=== PATIENT | male | born 1970 | race African-American/Black ===

== ENCOUNTER 2022-12-12 20:10 | Emergency (ER) | payer SELFPAY ==
[2022-12-12] VITALS (8 sets, daily range): BP systolic 125–152; BP diastolic 75–88; PULSE 94–103; RESP 12–25; TEMP 36.8; O2SAT 98–100
--- NOTE | ~2022-12-12 | XR_ITS ---
Portable chest x-ray Comparison: None Clinical History: Chest pain Findings: Lungs are clear, without focal consolidation or pleural effusion. Cardiomediastinal silho uette is unremarkable. Bones and soft tissues are unremarkable. Impression: Normal chest. Reviewed, dictated and finalized at location M. Impression: Normal chest.
--- NOTE | 2022-12-12 21:35 | ECG_ITS ---
Measurements Intervals [place] Rate: 95 P: 24 [place]: 120 QRS: 53 QRSD: 90 T: 73 QT: 335 QTc: 423 Interpretive Statements SINUS RHYTHM VOLTAGE CRITERIA FOR LVH ST ELEVATION IN ANTERIOR LEADS- PROBABLY EARLY REPOLARIZATION ABNORMALITY BORDERLINE ECG NO PREVIOUS ECG AVAILABLE FOR COMPARISON Electronically Signed On 12-13-2022 6:12:27 CDT by Greg Acosta D.O.
[2022-12-12 21:48] LABS: Basophils Absolute Auto 0.1 K/mm3 (0.0-0.1); Basophils Percent Auto 0.8 % (0.2-1.2); Eosinophils Absolute Auto 0.3 K/mm3 (0-0.3); Eosinophils Percent Auto 4.7 % (0-4.4); Hematocrit 40.1 % (42.0-52.0); Hemoglobin 13.9 g/dL (14.0-18.0); Immature Granulocyte Absolute 0.02 K/mm3 (0.00-0.031); Immature Granulocyte Percent A 0.3 % (0-0.5); Lymphocytes Absolute Auto 1.17 K/mm3 (0.9-3.2); Lymphocytes Percent Auto 19.7 % (18.3-44.2); Mean Corpuscular HGB Conc 34.7 g/dl (32-36); Mean Corpuscular Hemoglobin 32.2 pg (26-34); Mean Corpuscular Volume 92.8 fl (80-100); Mean Platelet Volume 10.3 fl (7.4-10.4); Monocytes Absolute Auto 0.5 K/mm3 (0.1-0.6); Monocytes Percent Auto 7.7 % (2.6-8.5); Neutrophils Percent Auto 66.8 % (45.5-73.1); Platelet Count Result 205 k/mm3 (150-375); Red Blood Count 4.32 M/mm3 (4.6-6.20); Red Cell Distribution Width 11.4 % (11.5-14.5); White Blood Count 5.9 K/mm3 (4.5-10.0)
[2022-12-12 21:59] LABS: Alanine Aminotransferase 31 U/L (6-50); Albumin Level 4.1 g/dL (3.5-5.1); Alkaline Phosphatase 124 U/L (38-126); Anion Gap 6 mmol/L (8-16); Aspartate Amino Transferase 26 U/L (17-59); Blood Urea Nitrogen 16 mg/dL (9-20); Calcium 8.6 mg/dL (8.4-10.2); Carbon Dioxide 30 mmol/L (22-30); Chloride 95 mmol/L (98-107); Estimated CRCL calculation 94 ml/min; Estimated Glomerular Filt Rate > 60; Glucose 574 mg/dL (65-110); Potassium 4.1 mmol/L (3.4-5.0); Sodium 131 mmol/L (137-145)
--- NOTE | 2022-12-12 22:00 | ECG_ITS ---
Measurements Intervals [place] Rate: 96 P: 41 TN: 145 QRS: 55 QRSD: 85 T: 76 QT: 329 QTc: 416 Interpretive Statements SINUS RHYTHM VOLTAGE CRITERIA FOR LVH ST ELEVATION IN ANTEROLAT/INF LEADS- PROBABLY EARLY REPOLARIZATION ABNORMALITY BORDERLINE ECG COMPARED TO ECG 12/12/2022 21:45:23 NO SIGNIFICANT CHANGES Electronically Signed On 12-13-2022 7:55:50 CDT by Greg Acosta D.O.
[2022-12-12] MEDS: SODIUM CHLORIDE 0.9% IV 3,000 ML 999 ML IV CONT (23:43)
[2022-12-13 00:46] VITALS: BP 129/73; PULSE 81; RESP 10
--- NOTE | 2022-12-13 03:19 | ED.GENADULT ---
HPI - General Adult General Chief complaint: Syncope Stated complaint: syncope, out of DM meds Time Seen by Provider: 12/12/22 21:35 History of Present Illness HPI narrative: This is a 52-year-old male presenting ED after syncopal event. Patient says he woke up this morning and went to the restroom and urinated. After urinated he had a syncopal event and fell to the floor. He woke up and then went to work. He was at work for most the day but felt fatigued. He then came to emergency department for evaluation. The patient has been out of his diabetes meds for approximately 2 months. He has had increased urinary frequency. Patient also has pain over the left side of his ribcage that is worse with palpation. He does not note any trauma. It has been going on for 2-3 weeks. patient denies chest pain, difficulty breathing, fever, chills, diarrhea or any other complaints. Related Data Allergies Allergy/AdvReac Type Severity Reaction Status Date / Time No Known Allergies Allergy Verified 12/13/22 03:28 [facility] Past Medical History Medical History Diabetes Exam Narrative: APPEARANCE: No apparent distress. Head: No evidence of trauma, EYES: EOMI, NOSE: Atraumatic, no midline cervical tenderness NECK: Trachea midline RESPIRATORY: No increased rate of breathing, clear to auscultation CARDIOVASCULAR: RRR, no peripheral edema ABDOMINAL: Non-distended MUSCULOSKELETAl: No obvious deformities, tenderness to palpation over the left lower ribcage. No crepitus no bruising. NEURO: Alert. Cranial nerves 2-12 grossly intact. Sensation light touch, motor function cerebellar function intact for 4 extremities. Gait exam was normal. SKIN:: Warm, dry. Normal color PSYCHIATRIC: Normal affect Course Vital Signs Vital signs: Vital Signs Temperature 98.3 F 12/12/22 20:41 Pulse Rate 103 H 12/12/22 20:41 Respiratory Rate 18 12/12/22 20:41 Blood Pressure 138/88 12/12/22 20:41 Pulse Oximetry 100 12/12/22 20:41 Oxygen Delivery Room Air 12/12/22 20:41 Temperature 98.3 F 12/12/22 20:41 Pulse Rate 95 12/12/22 22:16 Respiratory Rate 12 12/12/22 22:16 Blood Pressure 125/75 12/12/22 22:16 Pulse Oximetry 99 12/12/22 22:16 Oxygen Delivery Room Air 12/12/22 20:41 Medical Decision Making MDM Narrative Medical decision making narrative: -Presentation: this is a 52-year-old diabetic who has been off of his medications for several months. He now episode of micturition syncope and then has felt fatigued throughout the day. Glucose was elevated at 500. -DDX includes but is not limited to: dehydration due to uncontrolled diabetes, DKA /HHS, micturition syncope -Co-morbidities complicating care: diabetes, medication noncompliance -Social determinants of health: patient works as a city driver. Lives with his . -External Chart Review: None -Hx from independent Sources: none -Discussion of Management/Consultants: none -Independent interpretation of studies: His CBC will is normal. Metabolic panel showed hyponatremia and hypochloremia other consistent with dehydration. Glucose was 574 but there was no acidosis or anion gap. Independent EKG interpretation: Rhythm [sinus], Rate [95], [place] -[normal], [place] -[normal], QRS [narrow], QTC [normal], T waves -[negative for concerning inversions], ST Segments - [Negative for concerning elevations] Final interpretations: [Normal Sinus Rhythm] chest x-ray showed no acute cardiopulmonary process per UA showed 51-100 white blood cells and +1 leuk esterase. Patient will be treated for urinary tract infection. Dx tests considered but not ordered: -Procedures: -Interventions: 3 L normal saline -Shared decision making / Disposition: upon re-evaluation the patient is feeling better. Patient's symptoms are likely due to dehydration and UTI from his uncontrolled diabetes.
[2022-12-13 03:31] VITALS: BP 122/88; PULSE 83; RESP 13; O2SAT 100
[2022-12-13 03:41] LABS: Appearance Urine Clear (Clear); Bacteria Urine None Seen /hpf; Bilirubin Urine Negative (Negative); Blood Urine Negative (Negative); Color Urine Yellow (Yellow); Glucose Urine UA 3+ mg/dL (Negative); Ketones Urine Negative (Negative); Leukocyte Esterase Ur 1+ LEU/UL (Negative); Nitrate Urine Negative (Negative); Non Pathogenic Casts 0-2; Protein Urine Negative (Negative); RBC Urine 0-2 /hpf (0-2); Squamous Epithelial Cell Urine None seen /hpf (Few); WBC Urine 51-100 /hpf; pH Urine 6.5 (5.0-9.0)
[2022-12-13 03:49] LABS: Add Urine Microscopic? YES
[2022-12-13 04:22] VITALS: BP 122/78; PULSE 81; O2SAT 100
[2022-12-13] MEDS: CEPHALEXIN 500 MG CAPSULE PO (04:22)
== END 2022-12-13 04:40 | disposition home or self-care (01) ==
PROVIDERS: Emergency Provider Emergency Medicine
DX: E11.65 Type 2 diabetes mellitus with hyperglycemia (principal); N39.0 Urinary tract infection, site not specified; E86.0 Dehydration; T38.3X6A Underdosing of insulin and oral hypoglycemic [antidiabetic] drugs, initial encounter; R94.31 Abnormal electrocardiogram [ECG] [EKG]
CPT/HCPCS: 36415; 71045; 80053; 81001; 85025; 87086; 93005; 96361; 96374; 99284; A9270; J0131; J7030